=== PATIENT | female | born 1995 | race Two or more races ===

== ENCOUNTER 2017-09-22 20:59 | Emergency (ER) | payer SELFPAY ==
[~2017-09-22] VITALS: Ht 167.6 cm; Wt 54.4 kg
[2017-09-22 21:25] VITALS: BP 129/82
== END 2017-09-23 01:22 | disposition left against medical advice (07) ==
LOC: ER 20:59
DX: R10.9 Unspecified abdominal pain (principal); R11.2 Nausea with vomiting, unspecified; R19.7 Diarrhea, unspecified; Z53.21 Procedure and treatment not carried out due to patient leaving prior to being seen by health care provider

== ENCOUNTER 2018-11-22 20:38 | Emergency (ER) | payer BC, MEDICAID ==
[~2018-11-22] VITALS: Ht 165.1 cm; Wt 54.4 kg
[2018-11-22 21:27] LABS: Basophils # (auto) 0 uL; Basophils % (auto) 0.6 % (0.0-2.0); Eosinophils # (auto) 0.1 uL; Eosinophils % (auto) 1.3 % (0.0-7.0); Hematocrit 40.7 % (36.0-46.0); Hemoglobin 13.6 g/dL (12.2-16.2); Lymphocytes # (auto) 1.6 uL; Lymphocytes % (auto) 32.7 % (10.0-50.0); Mean Corpuscular Hemoglobin 28.8 pg (28.0-32.0); Mean Corpuscular Hgb Conc. 33.4 g/dL (32.0-36.0); Mean Corpuscular Volume 86.2 fL (80.0-100.0); Monocytes # (auto) 0.5 uL; Monocytes % (auto) 10.6 % (0.0-12.0); Neutrophils # (auto) 2.7 uL; Neutrophils % (auto) 54.8 % (37.0-80.0); Nucleated Red Blood Cells % 0.1 %; Platelet Count (auto) 219 10^3/uL (140-450); Red Blood Cells 4.72 10^6/uL (4.0-5.20); Red Cell Distribution Width 12.8 % (11.8-14.3); White Blood Cell 4.9 10^3/uL (4.4-10.8)
[2018-11-22 21:33] LABS: Urine Bacteria NONE SEEN /hpf (None Seen); Urine Blood Negative /uL (Negative); Urine Mucus FEW (None Seen); Urine Specific Gravity 1.024 (1.001-1.035); Urine WBC 1 /hpf (0 - 5)
[2018-11-22 21:46] LABS: BUN/Creatinine Ratio 12.2; Calcium 8.8 mg/dL (8.5-10.1); Potassium 3.7 mmol/L (3.5-5.1)
[2018-11-22 21:48] LABS: Bilirubin, Total 0.5 mg/dL (0.2-1.0); Total Protein 7.7 g/dL (6.4-8.2)
[2018-11-23] MEDS ORDERED: HYDROcodone-ACET 5/325MG TAB PO ONE (05:00)
[2018-11-23] MEDS ORDERED: FAMOTIDINE 20 MG TAB PO ONE (05:00)
[2018-11-23 06:27] VITALS: BP 95/58
== END 2018-11-23 06:39 | disposition home or self-care (01) ==
LOC: ER 20:43
DX: K29.00 Acute gastritis without bleeding (principal)
CPT/HCPCS: 36415; 74176; 80053; 81001; 81025; 82150; 83690; 85025

== ENCOUNTER 2022-02-18 14:50 | Emergency (ER) | payer BC, MEDICAID ==
[~2022-02-18] VITALS: Ht 167.6 cm; Wt 59.0 kg
[2022-02-18] MEDS ORDERED: AZIT250T8 PO (16:18)
[2022-02-18] MEDS ORDERED: METH4PAK PO (16:18)
[2022-02-18] MEDS ORDERED: PROM1SOL4 PO (16:18)
[2022-02-18 16:28] VITALS: BP 116/82
== END 2022-02-18 16:31 | disposition home or self-care (01) ==
LOC: ER 14:50
DX: J02.9 Acute pharyngitis, unspecified (principal); J20.9 Acute bronchitis, unspecified